=== PATIENT | female | born 1940 | race Caucasian/White ===

== ENCOUNTER 2017-10-17 07:03 | Day surgery (SDC) | payer MEDICARE ==
[~2017-10-17 07:03] MED LIST: Buffered Lidocaine 0.9% SYRIN* 5 ML/SYR SYRINGE INTRADERM ONE
[2017-10-17] MEDS ORDERED: Buffered Lidocaine 0.9% SYRIN* 5 ML/SYR SYRINGE ONE (07:19)
--- NOTE | 2017-10-17 10:05 | RAD ---
HISTORY: Left-sided radiculopathy COMPARISONS: None TECHNIQUE: The following sequences were obtained of the lumbar spine: Sagittal and axial T1- and T2-weighted images, coronal T2-weighted images, and sagittal STIR images. FINDINGS: SPINAL CORD, CONUS, AND CAUDA EQUINA: The visualized spinal cord, conus, and cauda equina are normal in caliber, position, and signal intensity. ALIGNMENT: There is trace anterolisthesis of L4 and L5. VERTEBRAL BODIES: The bones are normal in signal intensity. There is mild anterolateral marginal osteophyte formation. JOINTS: There is facet osteoarthritis most pronounced along the lower lumbar spine. MUSCULATURE: Unremarkable INTERVERTEBRAL DISCS: There is diffuse loss of intervertebral disc height and T2 signal throughout the spine. AXIAL IMAGES: L1-L2: There is a broad-based disc bulge at bilateral facet hypertrophy. There is moderate bilateral neural foraminal narrowing. There is mild narrowing of the central canal. L2-L3: There is bilateral facet hypertrophy. There is mild narrowing of central canal. There is no significant neural foraminal narrowing. L3-L4: There is broad-based disc bulge at bilateral facet hypertrophy. There is mild bilateral neural foraminal narrowing. There is moderate narrowing of the central canal. L4-L5: There is bilateral facet hypertrophy. There is mild bilateral neural foraminal narrowing. There is moderate narrowing of the central canal. L5-S1: There is bilateral facet hypertrophy. There is no significant neural foraminal narrowing or central canal stenosis. SOFT TISSUES: The visualized soft tissues of the abdomen are unremarkable. OTHER: None. IMPRESSION: 1. DEGENERATIVE DISC DISEASE AND OSTEOARTHRITIS. 2. THERE IS MODERATE NARROWING OF THE CENTRAL CANAL AT L3-L4 AND L4-L5 WITH MILD NARROWING AT L1-L2 AND L2-L3. 3. THERE IS MULTILEVEL NEURAL FORAMINAL NARROWING DESCRIBED ABOVE.
[2017-10-17 10:12] VITALS: BP 135/83
== END 2017-10-17 10:25 | disposition home or self-care (01) ==
LOC: OR 07:03 → EDSTATUS 09:00 → OR 10:25
PROVIDERS: ATTEND Anesthesiology Pain Medicine
DX: M54.16 Radiculopathy, lumbar region (principal); E11.9 Type 2 diabetes mellitus without complications; Z79.84 Long term (current) use of oral hypoglycemic drugs; M51.36 Other intervertebral disc degeneration, lumbar region; M47.896 Other spondylosis, lumbar region; M48.061 Spinal stenosis, lumbar region without neurogenic claudication; I10 Essential (primary) hypertension; M19.90 Unspecified osteoarthritis, unspecified site; E07.9 Disorder of thyroid, unspecified
CPT/HCPCS: 72148

== ENCOUNTER → 2018-09-10 08:17 | Day surgery (SDC) | payer MEDICARE ==
[~2018-09-10 08:17] MED LIST changes: +Acetaminophen IV 1GM/100ML * 1,000 MG/100 ML VIAL IVPB ONE; +Bacitracin INJECTION* 50,000 UNITS ONE; -Buffered Lidocaine 0.9% SYRIN* 5 ML/SYR SYRINGE INTRADERM ONE; +Buffered Lidocaine 1% SYRIN* 1 ML/SYRINGE INTRADERM ONE; +Cisatracurium* 2 MG/ML MDV 5 ML ONE; +Dexamethasone IV* 4 MG/ML 1 ML (4 MG) ONE; +Famotidine IV* 10 MG/ML 2 ML (20 mg) IV ONE; +Famotidine IV* 10 MG/ML 2 ML (20 mg) ONE; +Lactated Ringers 1000 ML Bag* 1,000 ML IV SCH; +Lidocaine 1% MPF wEPI 200,000* 30 ML SDV ONE; +Lidocaine 2% PF * 5 ML VIAL ONE; +Midazolam* 1 MG/ML 5 ML VIAL (5 MG) ONE; +Ondansetron INJ* 2 MG/ML VIAL ONE; +Phenylephrine 10 MG/ML VIAL* 1 ML VIAL ONE; +Propofol* 0 MG/0 ML BTL ONE; +Propofol* 10 MG/ML 20 ML BTL ONE; +Remifentanil* 2 MG VIAL ONE; +SODIUM CHLORIDE 0.9% ONE; +Thrombin 5,000 UNITS* 1 APPLIC KIT - topical use - TOPICAL ONE; +Vancomycin(*) 2,000 MG in NS 0.9% 500 ML* 500 ML IVPB ONE; +fentaNYL* 50 MCG/ML 2 ML VIAL (100 MCG VIAL) ONE
[2018-09-10 09:30] VITALS: BP 168/84
[2018-09-10 10:08] LABS: Urine Appearance Cloudy; Urine Bacteria Absent (Absent); Urine Bilirubin Negative (Negative); Urine Blood 1+ (Negative); Urine Color Yellow; Urine Glucose Negative (Negative); Urine Ketones Trace (Negative); Urine Nitrite Negative (Negative); Urine Protein Negative (Negative); Urine Red Blood Cell 1+(3-5/hpf) (Absent); Urine Specific Gravity 1.024 (1.010-1.030); Urine Squamous Epithelial Cell Present (Absent); Urine Urobilinogen Negative (Negative); Urine White Blood Cell 3+(>20/hpf) (Absent)
== END | disposition home or self-care (01) ==
LOC: OR 08:17
PROVIDERS: ATTEND Neurological Surgery
DX: M47.26 Other spondylosis with radiculopathy, lumbar region (principal); Z53.09 Procedure and treatment not carried out because of other contraindication; N39.0 Urinary tract infection, site not specified
CPT/HCPCS: 81003; 81015; 87086; A9270-GY; J1100; J2001; J2250; J2405; J2704; J3010; J3370

== ENCOUNTER 2018-09-28 06:19 | Inpatient (IN) | payer MEDICARE ==
[2018-09-28] MEDS ORDERED: Buffered Lidocaine 1% SYRIN* 1 ML/SYRINGE INTRADERM ONE (14:33)
[2018-09-29] MEDS ORDERED: Vancomycin(*) 2,000 MG in NS 0.9% 500 ML* 500 ML IVPB SCH ×2
--- OUTSIDE RECORDS SUMMARY | 2018-09-29 05:33 | XMS REPORT | Continuity of Care Document ---
:1940 External Reference #:[id number] Author Name Rosey Bentley Care Team Providers Name Role Phone Gary Juarez D.O. Primary Care Physician Unavailable Payers Date Identification Numbers Payment Provider Subscriber Policy Number: [id number] [employer] [place] PayID: [id number] [address] [place] [address] Advance Directives Description No Information Available Problems Description No Information Family History Date Family Member(s) Observation Comments General Heart Disease General Leukemia Social History Type Date Description Comments Sex Unknown Marital Status Lives With Tobacco Use Start: Unknown End: Unknown Patient is a former smoker Smoking Status Reviewed: 09/25/18 Patient is a former smoker Allergies, Adverse Reactions, Alerts Active Allergies Reaction Severity Comments Date Penicillin 09/10/2017 Medications Active Medications SIG Qnty Indications Ordering Date Provider Caltrate 600+D Plus take one Unknown Minerals capsule/tablet [id number] Chewtabs by mouth twice daily Atenolol 1 by mouth Unknown 50mg Tablets every day Hydrochlorothiazide 1/2 by mouth Unknown 25mg Tablets every day Simvastatin 1 by mouth Unknown 20mg Tablets every day Levothyroxine Sodium 1 by mouth Unknown 137mcg Tablets every day Metformin HCL 1 by mouth Unknown 500mg Tablets twice a day Ibuprofen as needed Unknown 200mg Tablets Vitamin D-3 1 by mouth Unknown 1000Unit Capsules every day Iron 1 by mouth Unknown 325(65Fe) mg Tablets every day Vitamin C Immune Health 2 by mouth Unknown 500mg every day Chewtabs Iron (Ferrous Gluconate) 1 by mouth a Unknown 256(28Fe) day mg Tablets History Medications Vitamin B-12 1 by mouth every day Unknown - 06/01/2018 1000mcg Tablets Metoprolol Succinate ER 1 by mouth every day Unknown - 2018 50mg Tablets ER 24HR Ibuprofen as needed Unknown - 05/26/2018 200mg Tablets Vitamin C Immune Health 1 qd Unknown - 06/01/2018 500mg Chewtabs Immunizations Description No Information Available Vital Signs Date Vital Result Comment 09/25/2018 10:25am Height 62 inches 5'2" Weight 277.00 lb Heart Rate 55 /min BP Systolic Sitting 110 mmHg right upper arm BP Diastolic Sitting 60 mmHg right upper arm Respiratory Rate 22 /min Body Temperature 97.7 F Pain Level 7 O2 % BldC Oximetry 97 % BMI (Body Mass Index) 50.7 kg/m2 08/07/2018 10:30am Height 62 inches 5'2" Weight 280.00 lb BP Systolic Sitting 140 mmHg BP Diastolic Sitting 88 mmHg Pain Level 6 BMI (Body Mass Index) 51.2 kg/m2 07/06/2018 4:17pm Height 62 inches 5'2" Weight 286.00 lb BP Systolic Sitting 136 mmHg BP Diastolic Sitting 86 mmHg Pain Level 6 BMI (Body Mass Index) 52.3 kg/m2 06/19/2018 11:12am Height 62 inches 5'2" Weight 286.00 lb Heart Rate 76 /min BP Systolic Recheck 132 mmHg BP Diastolic Recheck 84 mmHg Respiratory Rate 16 /min Body Temperature 97.7 F BMI (Body Mass Index) 52.3 kg/m2 05/04/2018 11:43am Height 62 inches 5'2" Weight 280.00 lb BP Systolic Sitting 126 mmHg BP Diastolic Sitting 80 mmHg Pain Level 10 BMI (Body Mass Index) 51.2 kg/m2 04/08/2018 12:01pm Height 62 inches 5'2" Weight 280.00 lb BP Systolic Sitting 130 mmHg BP Diastolic Sitting 70 mmHg Pain Level 7 BMI (Body Mass Index) 51.2 kg/m2 09/10/2017 8:59am Height 62 inches 5'2" Weight 280.00 lb Heart Rate 76 /min BP Systolic Recheck 134 mmHg BP Diastolic Recheck 82 mmHg Respiratory Rate 16 /min Body Temperature 97.8 F BMI (Body Mass Index) 51.2 kg/m2 Results Test Date Facility Test Result H/L Range Note Urinalysis Profile 09/10/2018 [facility] Urine Color Yellow [address] [place] [address] [phone] Urine Appearance Cloudy Urine Specific Bertha 1.024 N 1.010-1.030 Urine pH 7.0 N 5-9 Urine Urobilinogen Negative Negative Urine Ketones Trace Abnormal Negative Urine Protein Negative Negative Urine Leukocytes 3+ Abnormal Negative Urine Blood 1+ Abnormal Negative Urine Nitrite Negative Negative Urine Bilirubin Negative Negative Urine Glucose Negative Negative Urine White Blood Cell 3+(>20/hpf) Abnormal Absent Urine Red Blood Cell 1+(3-5/hpf) Abnormal Absent Urine Bacteria Absent Absent Urine Squamous Epithelial Cell Present Abnormal Absent Urine Culture And 09/10/2018 [facility] Urine SEE RESULT [address] [place] [address] [phone] Laboratory test 09/10/2018 [facility] Point of 110 mg/dL High 70-10 [address] Care Glucose 0 [place] [address] [phone] CBC No Diff 09/03/2018 [facility] White Blood 8.9 10^3/uL N 3.5-[address] Count 0[address]8 [place] [address] [phone] Red Blood Count 5.13 10^6/uL High 3.70-4.87 Hemoglobin 14.3 g/dL N 12.0-16.0 Hematocrit 43 % High 33-41 Mean Corpuscular Volume 84 fL N 80-97 Mean Corpuscular Hemoglobin 28 pg N 27-31 Mean Corpuscular HGB Conc 34 g/dL N 31-36 Red Cell Distribution Width 15 % N 10.5-15 Platelet Count 264 10^3/uL N 150-450 Mean Platelet Volume 7.6 fL N 7.4-10.4 Urinalysis Profile 09/03/2018 [facility] Urine Color Yellow [address] [place] [address] [phone] Urine Appearance Clear Urine Specific Bertha 1.013 N 1.010-1.030 Urine pH 6.0 N 5-9 Urine Urobilinogen Negative Negative Urine Ketones Negative Negative Urine Protein Negative Negative Urine Leukocytes 3+ Abnormal Negative Urine Blood 1+ Abnormal Negative Urine Nitrite Negative Negative Urine Bilirubin Negative Negative Urine Glucose Negative Negative Urine White Blood Cell 1+(6-10/hpf) Abnormal Absent Urine Red Blood Cell 1+(3-5/hpf) Abnormal Absent Urine Bacteria Absent Absent Urine Squamous Epithelial Cell Present Abnormal Absent Inr/Protime 09/03/2018 [facility] Inr 0.89 N 0.77-1.[address] [place] [address] [phone] Laboratory test 09/03/2018 [facility] Partial 31.8 seconds N 26.0-36.[address] [place] [address] PTT [phone] Type & Screen 09/03/2018 [facility] Patient O [place] [address] [phone] Antibody Screen NEGATIVE Basic Metabolic Panel 09/03/2018 [facility] Sodium 144 mmol/L N [address] [place] [address] [phone] Potassium 4.2 mmol/L N 3.5-5.0 Chloride 104 mmol/L N 101-111 Co2 Carbon Dioxide 27 mmol/L N 22-32 Anion Gap 13 mmol/L High 2-11 Calcium 9.7 mg/dL N 8.6-10.3 Glucose 104 mg/dL High 70-100 Blood Urea Nitrogen 16 mg/dL N 6-24 Creatinine 0.78 mg/dL N 0.51-0.95 BUN/Creatinine Ratio 20.5 High 8-20 Egfr Non- 71.4 >60 Egfr 86.4 >60 5 Urine Culture And 09/03/2018 [facility] Urine Culture SEE RESULT [address] [place] [address] [phone] Urine Culture And 08/13/2018 [facility] Urine Culture SEE RESULT 7, [address] [place] [address] [phone] Urinalysis Profile 08/13/2018 [facility] [place] [address] [phone] Urine Appearance Cloudy Urine Specific Bertha 1.016 N 1.010-1.030 Urine pH 6.0 N 5-9 Urine Urobilinogen Negative Negative Urine Ketones Negative Negative Urine Protein Negative Negative Urine Leukocytes 3+ Abnormal Negative Urine Blood 2+ Abnormal Negative Urine Nitrite Negative Negative Urine Bilirubin Negative Negative Urine Glucose Negative Negative Urine White Blood Cell 3+(>20/hpf) Abnormal Absent Urine Red Blood Cell 2+(6-10/hpf) Abnormal Absent Urine Bacteria 1+ Abnormal Absent Urine Squamous Epithelial Cell Present Abnormal Absent Urine Hyaline Casts Present Abnormal Absent Basic Metabolic Panel 08/13/2018 [facility] Sodium 141 mmol/L N 135-[address] [place] [address] [phone] Potassium 3.8 mmol/L N 3.5-5.0 Chloride 102 mmol/L N 101-111 Co2 Carbon Dioxide 31 mmol/L N 22-32 Anion Gap 8 mmol/L N 2-11 Glucose 100 mg/dL N 70-100 Blood Urea Nitrogen 16 mg/dL N 6-24 Creatinine 0.77 mg/dL N 0.51-0.95 BUN/Creatinine Ratio 20.8 High 8-20 Calcium 9.8 mg/dL N 8.6-10.3 Egfr Non- 72.5 >60 Egfr 87.7 >60 9 Type & Screen 08/13/2018 [facility] Patient Blood Type O Positive [facility] [place] [address] [phone] Antibody Screen NEGATIVE CBC No Diff 08/13/2018 [facility] White Blood 8.8 10^3/uL N 3.5-10.8 [address] [facility] [place] [address] [phone] Red Blood Count 5.11 10^6/uL High 3.70-4.87 Hemoglobin 13.9 g/dL N 12.0-16.0 Hematocrit 42 % High 33-41 Mean Corpuscular Volume 83 fL N 80-97 Mean Corpuscular Hemoglobin 27 pg N 27-31 Mean Corpuscular HGB Conc 33 g/dL N 31-36 Red Cell Distribution Width 14 % N 10.5-15 Platelet Count 250 10^3/uL N 150-450 Mean Platelet Volume 7.8 fL N 7.4-10.4 Laboratory test 08/13/2018 [facility] Partial 31.2 N 26.0- 36.3 [address] [place] [address] Time PTT [phone] Inr/Protime 08/13/2018 [facility] Inr 0.87 N 0.77-1.02 [address] [place] [address] [phone] Laboratory test 06/26/2018 [facility] Point of 121 mg/dL High 70-100 11 finding [address] [facility] [place] [address] Glucose [phone] 1 SEE RESULT BELOW Name: LITTLE RETANA : [address]: Alonso Ruvalcaba MD Acct: [id number] Unit: [id number] AGE: 78 Location: OR Re09/10/18 SEX: F Status: REG SDC SPEC: [id number] GO: 09/10/[address] [facility] [address]: Alonso Ruvalcaba MD REQ: [id number] RECD: 09/10/18 STATUS: DANN BOURGEOIS DR: Gary Juarez DO _ SOURCE: URINE SPDESC: ORDERED: Urine Culture Procedure Result Reported Site Urine Culture Final 09/11/18- 1013 ML No growth of clinically significant organisms * ML - Main Lab . END OF REPORT DEPARTMENT OF PATHOLOGY, [address] [place] [address] Nico Isidro M.D. Director [facility] # [id number] 2 [employer]: [id number] 09/10 4 09/10 5 Because ethnic data is not always readily available, this report includes an eGFR for both -Americans and non- Americans. The National Kidney Disease Education Program (NKDEP) does not endorse the use of the MDRD equation for patients that are not between the ages of 18 and 70, are , have extremes of body size, muscle mass, or nutritional status, or are non- or non-. According to the National Kidney Foundation, irrespective of diagnosis, the stage of the disease is based on the level of kidney function: Stage Description GFR(mL/min/1.73 m(2)) 1 Kidney damage with normal or decreased GFR 90 2 Kidney damage with mild decrease in GFR 60-89 3 Moderate decrease in GFR 30-59 4 Severe decrease in GFR 15-29 5 Kidney failure <15 (or dialysis) 6 SEE RESULT BELOW Name: LITTLE RETANA : [address]: Alonso Ruvalcaba MD Acct: [id number] Unit: [id number] AGE: 78 Location: [facility] Re09/03/18 SEX: F Status: REG REF SPEC: [id number] GO: 09/03/[address] [facility] [address]: Alonso Ruvalcaba MD REQ: [id number] RECD: 09/03/18 STATUS: DANN BOURGEOIS DR: Gary Juarez DO _ SOURCE: URINE SPDESC: ORDERED: Urine Culture Procedure Result Reported Site Urine Culture Final 09/04/18- 1335 ML No growth of clinically significant organisms * ML - Main Lab . END OF REPORT DEPARTMENT OF PATHOLOGY, [address] [place] [address] Nico Isidro M.D. Director [facility] # [id number] 7 08/20 8 SEE RESULT BELOW Name: LITTLE RETANA : [address]: Alonso Ruvalcaba MD Acct: [id number] Unit: [id number] AGE: 78 Location: PAT Re08/13/18 SEX: F Status: REG REF SPEC: [id number] GO: 08/13/18-[address] [facility] [address]: Alonso Ruvalcaba MD REQ: [id number] RECD: 08/13/18-1233 STATUS: DANN BOURGEOIS DR: Gary Juarez DO _ SOURCE: URINE SPDESC: ORDERED: Urine Culture Procedure Result Reported Site Urine Culture Final 08/14/18- 1214 ML No growth of clinically significant organisms * ML - Main Lab . END OF REPORT DEPARTMENT OF PATHOLOGY, [address] [place] [address] Nico Isidro M.D. Director [facility] # [id number] 9 Because ethnic data is not always readily available, this report includes an eGFR for both -Americans and non- Americans. The National Kidney Disease Education Program (NKDEP) does not endorse the use of the MDRD equation for patients that are not between the ages of 18 and 70, are , have extremes of body size, muscle mass, or nutritional status, or are non- or non-. According to the National Kidney Foundation, irrespective of diagnosis, the stage of the disease is based on the level of kidney function: Stage Description GFR(mL/min/1.73 m(2)) 1 Kidney damage with normal or decreased GFR 90 2 Kidney damage with mild decrease in GFR 60-89 3 Moderate decrease in GFR 30-59 4 Severe decrease in GFR 15-29 5 Kidney failure <15 (or dialysis) 10 AA 08/20 11 [employer]: [id number] Procedures Date Code Description Status 09/10/2017 96241 Control Nasal Hemorrhage Anterior Completed Encounters Type Date Location Provider Dx Diagnosis Office Visit 07/06/2018 [facility] M47.26 Other spondylosis 4:00p [facility] Ruvalcaba MD with radiculopathy, lumbar region M43.16 Spondylolisthesis, lumbar region M48.061 Spinal stenosis, lumbar region without neurogenic sophia Office Visit 06/19/2018 Neurosurgery Jessica M43.16 Spondylolisthesis, 11:00a [facility] Opal Walter PA-C lumbar region AT [place] M47.26 Other spondylosis with radiculopathy, lumbar region Office 05/04/2018 [facility] M47.26 Other spondylosis Visit 11:00a [facility] Ruvalcaba MD with radiculopathy, lumbar region M43.16 Spondylolisthesis, lumbar region Office 04/08/2018 [facility] M47.26 Other spondylosis Visit 11:30a [facility] Ruvalcaba MD with radiculopathy, lumbar region M43.16 Spondylolisthesis, lumbar region M48.061 Spinal stenosis, lumbar region without neurogenic sophia Office Visit 09/10/2017 9:15a [facility] Darrian Willett, R04.0 Epistaxis AT [facility] Plan of Treatment Future Appointment(s):12/28/2018 1:00 pm - Alonso Ruvalcaba MD at [facility]11/04/2018 11:30 am - Alonso Ruvalcaba MD at [facility]10/07/2018 9:00 am - Alonso Ruvalcaba MD at [facility]09/25/2018 - SCOT Ryan-[id number] Other spondylosis with radiculopathy, lumbar idzjovX83.16 Spondylolisthesis, lumbar voatfpZ32.061 Spinal stenosis, lumbar region without neurogenic claudFollow up: Surgery scheduled for 09/29. Follow up appointment already scheduled with Dr. Ruvalcaba.
--- OUTSIDE RECORDS SUMMARY | 2018-09-29 05:34 | XMS REPORT | Continuity of Care Document ---
:1940 External Reference #:[id number] Author Name Esthela Wheatley Care Team Providers Name Role Phone Gary Juarez D.O. Primary Care Physician Unavailable Payers Date Identification Numbers Payment Provider Subscriber Policy Number: [id number] [employer] [place] PayID: [id number] [address] [place] [address] Advance Directives Description No Information Available Problems Description No Information Family History Date Family Member(s) Observation Comments General Heart Disease General Leukemia Social History Type Date Description Comments Sex Unknown Marital Status Lives With Tobacco Use Start: Unknown End: Unknown Patient is a former smoker Smoking Status Reviewed: 08/07/18 Patient is a former smoker Allergies, Adverse Reactions, Alerts Date Description Reaction Status Severity Comments 09/10/2017 Penicillin Active Medications Medication Date Status Form Strength Qnty SIG Indications Ordering Provider Caltrate 600+D Plus / Active Chewtabs 600-800mg take Unknown Minerals 0000 -Unit one capsule /tablet by mouth twice daily Atenolol / Active Tablets 50mg 1 by Unknown 0000 mouth every day Hydrochlorothiazide 00/ Active Tablets 25mg 1/2 by Unknown 0000 mouth every day Simvastatin 00/ Active Tablets 20mg 1 by Unknown 0000 mouth every day Levothyroxine Sodium 00/ Active Tablets 137mcg 1 by Unknown 0000 mouth every day Metformin HCL / Active Tablets 500mg 1 by Unknown 0000 mouth twice a day Ibuprofen 00/00/ Active Tablets 200mg as Unknown 0000 needed Vitamin D-3 00// Active Capsules 1000Unit 1 by Unknown 0000 mouth every day Iron 00/00/ Active Tablets 325(65Fe) 1 by Unknown 0000 mg mouth every day Vitamin C Immune 00/ Active Chewtabs 500mg 2 by Unknown Health 0000 mouth every day Iron (Ferrous / Active Tablets 256(28Fe) 1 by Unknown Gluconate) 0000 mg mouth a day Vitamin B-12 / Hx Tablets 1000mcg 1 by Unknown 0000 - mouth 2018 day Metoprolol Succinate / Hx Tablets 50mg 1 by Unknown ER 0000 - ER 24HR mouth 2018 day Ibuprofen / Hx Tablets 200mg as Unknown 0000 - needed 2018 Vitamin C Immune / Hx Chewtabs 500mg 1 qd Unknown Health 0000 - 2018 Immunizations Description No Information Available Vital Signs Date Vital Result Comment 08/07/2018 10:30am Height 62 inches 5'2" Weight [...] Date Facility Test Result H/L Range Note CBC No Diff 09/03/2018 [facility] White Blood 8.9 10^3/uL N 3.5-10.[address] [place] [address] [phone] Red Blood Count 5.13 10^6/uL High 3.70-4.87 Hemoglobin 14.3 g/dL N 12.0-16.0 Hematocrit 43 % High 33-41 Mean Corpuscular Volume 84 fL N 80-97 Mean Corpuscular Hemoglobin 28 pg N 27-31 Mean Corpuscular HGB Conc 34 g/dL N 31-36 Red Cell Distribution Width 15 % N 10.5-15 Platelet Count 264 10^3/uL N 150-450 Mean Platelet Volume 7.6 fL N 7.4-10.4 Urinalysis Profile 09/03/2018 [facility] Urine Color Yellow [address] [place] [address] [phone] Urine Appearance Clear Urine Specific [place] 1.013 N 1.010-1.030 Urine pH 6.0 N [...] Epithelial Cell Present Abnormal Absent Inr/Protime 09/03/2018 [facility] Inr [address] [place] [address] [phone] Laboratory test 09/03/2018 [facility] Partial 31.8 seconds N 26.0-36.3 2 finding [facility] [place] [address] PTT [phone] Type & Screen 09/03/2018 [facility] Patient O Positive [address] [place] [address] [phone] Antibody Screen NEGATIVE Basic Metabolic Panel 09/03/2018 [facility] Sodium 144 mmol/L N 135-145 [facility] [place] [address] [phone] Potassium 4.2 mmol/L N 3.5-5.0 Chloride 104 mmol/L N 101-111 Co2 Carbon Dioxide 27 mmol/L N 22-32 Anion Gap 13 mmol/L High 2-11 Calcium 9.7 mg/dL N 8.6-10.3 Glucose 104 mg/dL High 70-100 Blood Urea Nitrogen 16 mg/dL N 6-24 Creatinine 0.78 mg/dL N 0.51-0.95 BUN/Creatinine Ratio 20.5 High 8-20 Egfr Non- 71.4 >60 Egfr 86.4 >60 3 Urine Culture And 09/03/2018 [facility] Urine Culture SEE RESULT [address] [place] [address] [phone] Urine Culture And 08/13/2018 [facility] Urine Culture SEE RESULT 5, [address] [place] [address] [phone] Urinalysis Profile 08/13/2018 [facility] Urine Color Yellow [address] [place] [address] [phone] Urine Appearance Cloudy Urine Specific [place] 1.016 N 1.010-1.030 Urine pH 6.0 N [...] Present Abnormal Absent Basic Metabolic Panel 08/13/2018 [facility] Sodium 141 mmol/L N 135-[address] [place] [address] [phone] Potassium 3.8 mmol/L N 3.5-5.0 Chloride 102 mmol/L N 101-111 Co2 Carbon Dioxide 31 mmol/L N 22-32 Anion Gap 8 mmol/L N 2-11 Glucose 100 mg/dL N 70-100 Blood Urea Nitrogen 16 mg/dL N 6-24 Creatinine 0.77 mg/dL N 0.51-0.95 BUN/Creatinine Ratio 20.8 High 8-20 Calcium 9.8 mg/dL N 8.6-10.3 Egfr Non- 72.5 >60 Egfr 87.7 >60 7 Type & Screen 08/13/2018 [facility] Patient Blood Type O Positive [address] [place] [address] [phone] Antibody Screen NEGATIVE CBC No Diff 08/13/2018 [facility] White Blood 8.8 10^3/uL N 3.5-10.[address] [place] [address] [phone] Red Blood Count 5.11 10^6/uL High 3.70-4.87 Hemoglobin 13.9 g/dL N 12.0-16.0 Hematocrit 42 % High 33-41 Mean Corpuscular Volume 83 fL N 80-97 Mean Corpuscular Hemoglobin 27 pg N 27-31 Mean Corpuscular HGB Conc 33 g/dL N 31-36 Red Cell Distribution Width 14 % N 10.5-15 Platelet Count 250 10^3/uL N 150-450 Mean Platelet Volume 7.8 fL N 7.4-10.4 Laboratory test 08/13/2018 [facility] Partial 31.2 N 26.0- 36.3 8 [address] [address] PTT [phone] Inr/Protime 08/13/2018 [facility] Inr 0.87 N 0.77-1.[address] [place] [address] [phone] Laboratory test 06/26/2018 [facility] Point of 121 mg/dL High 70-100 [address] [place] [place] [address] [phone] 1 AA 09/10 2 AA 09/10 3 Because ethnic data is not always readily [...] 15-29 5 Kidney failure <15 (or dialysis) 4 SEE RESULT BELOW Name: LITTLE RETANA : [address]: Alonso Ruvalcaba MD Acct: [id number] Unit: [id number] AGE: 78 Location: [facility] Re09/03/18 SEX: F Status: REG REF SPEC: [id number] GO: 09/03/[address] [facility] [address]: Alonso Ruvalcaba MD REQ: [id number] RECD: 09/03/18 STATUS: DANN BOURGEOIS DR: Gary Juarez DO _ SOURCE: URINE SPDESC: ORDERED: Urine Culture Procedure Result Reported Site Urine Culture Final 09/04/18- 1335 ML No growth of clinically significant organisms * ML - Main Lab . END OF REPORT DEPARTMENT OF PATHOLOGY, [address] [place] [address] Nico Isidro M.D. Director [facility] # [id number] 08/20 6 SEE RESULT BELOW Name: LITTLE RETANA : [address]: Alonso Ruvalcaba MD Acct: [id number] Unit: [id number] AGE: 78 Location: PAT Re08/13/18 SEX: F Status: REG REF SPEC: [id number] GO: 08/13/18-[address] [facility] [address]: Alonso Ruvalcaba MD REQ: [id number] RECD: 08/13/181233 STATUS: DANN BOURGEOIS DR: Gary Juarez DO _ SOURCE: URINE SPDESC: ORDERED: Urine Culture Procedure Result Reported Site Urine Culture Final 08/14/18- 1214 ML No growth of clinically significant organisms * ML - Main Lab . END OF REPORT DEPARTMENT OF PATHOLOGY, [address] [place] [address] Nico Isidro M.D. Director [facility] # [id number] 7 Because ethnic data is not always readily [...] 15-29 5 Kidney failure <15 (or dialysis) 8 AA 08/20 9 Equipment Sterilizer: [id number] Procedures Date Code Description Status 09/10/2017 24064 Control Nasal Hemorrhage Anterior Completed Encounters Type Date Location Provider Dx Diagnosis Office Visit 07/06/2018 Neurosurgery Vassilios M47.26 Other spondylosis 4:00p [facility] Ruvalcaba MD with radiculopathy, lumbar region M43.16 Spondylolisthesis, lumbar region M48.061 Spinal stenosis, lumbar region without neurogenic sophia Office Visit 06/19/2018 Neurosurgery Jessica M43.16 Spondylolisthesis, 11:00a [facility] Walter PA-C lumbar region AT [place] M47.26 Other spondylosis with radiculopathy, lumbar region [...] Office Visit 09/10/2017 9:15a [facility] Darrian Willett, R04.0 Epistaxis AT [place] Plan of Treatment Future Appointment(s):09/21/2018 1:15 pm - Jessica Walter PA-C at [facility]09/10/2018 7:30 am - Jessica Walter PA-C at [facility]09/10/2018 7:30 am - Alonso Ruvalcaba MD at [facility]08/07/2018 - Alonso Ruvalcaba, MDM47.26 Other spondylosis with radiculopathy, lumbar regionFollow up:RV one week, one month, three months postop.M43.16 Spondylolisthesis, lumbar nzuieuA43.061 Spinal stenosis, lumbar region without neurogenic sophia
[2018-09-29] MEDS ORDERED: Dexamethasone IV* 4 MG/ML 1 ML (4 MG) IV SLOW PU ONE (06:00)
[2018-09-29] MEDS ORDERED: Famotidine IV* 10 MG/ML 2 ML (20 mg) IV ONE (06:00)
[2018-09-29] MEDS ORDERED: Lactated Ringers 1000 ML Bag* 1,000 ML IV SCH ×2 (06:00→17:00)
[2018-09-29] MEDS ORDERED: Famotidine IV* 10 MG/ML 2 ML (20 mg) ONE (06:10)
[2018-09-29] MEDS ORDERED: Buffered Lidocaine 1% SYRIN* 1 ML/SYRINGE INTRADERM ONE (06:10)
[2018-09-29] MEDS ORDERED: Dexamethasone IV* 4 MG/ML 1 ML (4 MG) ONE (06:10)
[2018-09-29] MEDS ORDERED: Thrombin 5,000 UNITS* 1 APPLIC KIT - topical use - TOPICAL ONE ×2 (06:29→11:48)
[2018-09-29] MEDS ORDERED: Bacitracin INJECTION* 50,000 UNITS ONE ×2 (06:29→11:49)
[2018-09-29] MEDS ORDERED: Lidocaine 1% MPF wEPI 200,000* 30 ML SDV ONE ×2 (06:29→11:48)
[2018-09-29] MEDS ORDERED: Succinylcholine* 20 MG/ML 10 ML VIAL ONE (11:54)
[2018-09-29] MEDS ORDERED: Propofol* 10 MG/ML 20 ML BTL ONE (11:54)
[2018-09-29] MEDS ORDERED: fentaNYL* 50 MCG/ML 5 ML VIAL (250 MCG VIAL) ONE (11:54)
[2018-09-29] MEDS ORDERED: Midazolam* 1 MG/ML 2 ML VIAL (2 MG) ONE (11:54)
[2018-09-29] MEDS ORDERED: Lidocaine 2% PF * 5 ML VIAL ONE (11:55)
[2018-09-29] MEDS ORDERED: HYDROcodone/ACETAMIN 5-325 MG* 1 TAB PO PRN ×2 (12:11→16:56)
[2018-09-29] MEDS ORDERED: Naloxone* 0.4 MG/ML 1 ML VIAL IV PRN (12:11)
[2018-09-29] MEDS ORDERED: DiMENhydriNATE IV* 50 MG/ML VIAL IV PUSH PRN (12:11)
[2018-09-29] MEDS ORDERED: Scopolamine 1.5 mg* PATCH TRANSDERM PRN (12:11)
[2018-09-29] MEDS ORDERED: EPHEDrine (Pressors)* 50 MG/ML VIAL ONE (12:36)
[2018-09-29] MEDS ORDERED: fentaNYL* 50 MCG/ML 2 ML VIAL (100 MCG VIAL) ONE ×4 (15:23→18:56)
[2018-09-29] MEDS ORDERED: Ondansetron INJ* 2 MG/ML VIAL ONE (16:10)
[2018-09-29] MEDS ORDERED: Ondansetron INJ* 2 MG/ML VIAL IV PRN (16:56)
[2018-09-29] MEDS ORDERED: Magnesium Hydroxide LIQ* 30 ML UDC PO PRN (16:56)
[2018-09-29] MEDS ORDERED: Cyclobenzaprine TAB* 10 MG PO PRN (17:32)
[2018-09-29] MEDS ORDERED: oxyCODONE/Acetamin 5/325 MG* TAB ONE (18:27)
[2018-09-29] MEDS: oxyCODONE/Acetamin 5/325 MG* TAB PO PRN ×2 (18:28→18:30)
[2018-09-29] MEDS: fentaNYL* 50 MCG/ML 2 ML VIAL (100 MCG VIAL) IV PRN ×4 (18:28→20:08)
--- NOTE | 2018-09-29 20:13 | CONS ---
[facility] MEDICINE CONSULTATION REPORT: DATE OF CONSULT: 09/29/18 PROVIDER: Brook De La Paz NP ATTENDING PHYSICIAN: Dr. Ruvalcaba. CONSULTING PHYSICIAN: Dr. Ana Cabrera (dictated by Brook De La Paz NP) REASON FOR CONSULT: Co-management of chronic medical conditions. HISTORY OF PRESENT ILLNESS: Ms. Centeno is a 78-year-old female with a past medical history significant for diabetes, hypertension, hypothyroid, hyperlipidemia, and lumbar spondylosis, who presented to [facility] for an elective left L4-L5 TLIF. Please see dictated H and P from Jessica Walter, for complete details. In brief, the patient had ongoing lower back pain, failed conservative measures; so elected for an elective left L4-L5 TLIF with Dr. Ruvalcaba. Due to the patient's past medical conditions, we were asked to consult and comanage her care during her hospitalization. PAST MEDICAL HISTORY: 1. Diabetes. 2. Hypertension. 3. Hypothyroid. 4. Hyperlipidemia. 5. Lumbar spondylosis. PAST SURGICAL HISTORY: 1. Back surgery. 2. Cataract. 3. Right shoulder repair. 4. Hysterectomy. 5. Left hip arthroplasty. 6. Right knee arthroplasty. HOME MEDICATIONS: 1. Caltrate plus D 600/800 mg 1 tablet twice daily. 2. Atenolol 50 mg po in the AM and 25 mg po in the evening . 3. Hydrochlorothiazide 25 mg half tablet every day. 4. Simvastatin 20 mg every day. 5. Levothyroxine 125 mcg p.o. daily. 6. Metformin 500 mg twice daily. 7. Ibuprofen 200 mg as needed. 8. Vitamin D3, 1000 units 1 tab p.o. daily. 9. Iron 325 one tab every day. 10. Vitamin C 500 mg 2 every day. 11. Ferrous gluconate 256 one tablet by mouth daily. ALLERGIES: PENICILLIN. FAMILY HISTORY: Mother with a history of an HI. No reported history of diabetes. Sister with leukemia. SOCIAL HISTORY: The patient reports that she quit smoking a long time ago. Denies any alcohol or illicit drug use. She is . Surrogate decision maker in the event she is unable to make her own decisions is her . She is a full code. REVIEW OF SYSTEMS: The patient denies any recent illnesses. Denies any fever, chills, chest pain, edema. Denies any cough, hemoptysis, or shortness of breath. No nausea, vomiting, diarrhea, abdominal pain, gross hematuria, dysuria , any focal weakness or sensory loss. Denies any acute changes in her vision, dysphagia, arthralgias, myalgias, rashes, lesions, or open sores. PHYSICAL EXAM: General: At this time, Ms. Centeno is a 78-year-old female. She is resting on the stretcher in PACU. She just complained of mild pain to her lower back. She does not appear to be in any acute distress. HEENT: Head is atraumatic, normocephalic. Eyes: EOMs are intact. Sclerae anicteric and not pale. Oral mucosa appeared to be moist. Neck is supple. Lungs are clear to auscultation bilaterally. No wheezes, rales, or rhonchi. Cardiac: S1, S2. Regular rate and rhythm. No murmurs, rubs, or gallops. Abdomen is obese, soft and nontender. Bowel sounds are present x4. Extremities: She is able to move all 4 extremities. Pedal pulses are +2 bilaterally. Sensation is intact to her lower extremities. Neurologic: She is awake, alert, and oriented x3. Speech is clear. Thought process is intact. There are no gross focal deficits. Skin: Intact. She does have a surgical incision to her lumbar spine. Psych : She is pleasant and cooperative. Vital Signs: 167/89, heart rate 74, respirations are 17, O2 saturation 97%, temperature was 97.0. DIAGNOSTIC STUDIES/LAB DATA: CBC from 09/03/18: WBCs were 8.9, RBCs 5.13, hemoglobin 14.3, hematocrit was 43, platelet count was 264. INR was 0.89, APTT was 31.8. Sodium 144, potassium 4.2, chloride 104, carbon dioxide 27, anion gap was 13, BUN was 16, creatinine 0.78, calcium was 9.7. Urine from 09/17/18, yellow cloudy, pH of 7.0, specific gravity was 1.012. Urine protein was negative, ketones were negative, blood was 1+. Nitrates, bilirubin, urobilinogen were all negative. Urine leukocyte esterase was 2+, wbc 's were 1+, rbc's were trace. Squamous epithelial cells were present. Bacteria was present. Urine glucose was negative. IMPRESSION AND PLAN: Ms. Centeno is a 78-year-old female with past medical history significant for diabetes, hypertension, hypothyroid, hyperlipidemia, and lumbar spondylosis, who presented for an elective L4-L5 transforaminal lumbar interbody fusion of the left L4-5. In the immediate postoperative period , the patient has no complaints. We were asked to consult co-manage her chronic medical conditions. Our recommendations are as follows: 1. Status post L4-L5 transforaminal lumbar interbody fusion. Management per Neurosurgery. PT/OT per Neurosurgery. Pain management per Neurosurgery. Bowel regimen per Neurosurgery. 2. Hypertension. We will continue on atenolol 50 mg in the AM and 25mg in the PM . HCTZ 12.5 mg po daily . 3. Hyperlipidemia. We will continue on simvastatin 20 mg p.o. daily. 4. Hypothyroid. We will continue on levothyroxine 125 mcg p.o. daily. 5. Diabetes. I will hold metformin and place her on lispro sliding scale with Accu-Cheks with a.c. 6. DVT prophylaxis: Per Orthopedics. 7. Diet: She can have a heart healthy, caffeine okay diet. 8. Code status: She is a full code. TIME SPENT: Time spent on this admission was approximately 45 minutes; greater than half that time was spent at the bedside reviewing events leading thus far to her hospitalization, performing my physical exam, and reviewing my plan of care. I have discussed with my attending, Dr. Ana Cabrera; she is in agreement with my plan. BROOK DE LA PAZ, GENE [id number]/[facility] #: [id number] LUCERO
[2018-09-29] MEDS ORDERED: Atenolol TAB* 25 MG PO SCH (21:30)
[2018-09-29] MEDS: Insulin LISPRO* 1 UNITS UNIT SUBCUT SCH (21:38)
--- NOTE | 2018-09-29 22:49 | PN ---
Hospitalist Progress Note Date of Service: 09/29/18 Follow up for confusion post-op. Patient is calm resting in her room on SSU. She is alert and oriented x4. She c/o mild lower back pain. Patient reports that she had a lot of anxiety in the PACU about a blonde female that she had a "sick sense" about. She reports that that has now resolved. She reports no further episode of confusion or feeling anxious.
[2018-09-30] MEDS: Acetaminophen TAB* 325 MG PO PRN ×3 (00:33→09:28)
--- NOTE | 2018-09-30 03:41 | OP ---
DATE OF OPERATION: 09/29/18 - ROOM #339 DATE OF : 40 SURGEON: Alonso Ruvalcaba MD. RESPIRATORY THERAPIST ASSISTANT: SCOT Ryan. ANESTHESIA: General. PRE-OP DIAGNOSIS: L4-5 degenerative disk disease with stenosis and grade 1 spondylolisthesis. POST-OP DIAGNOSIS: L4-5 degenerative disk disease with stenosis and grade 1 spondylolisthesis. OPERATIVE PROCEDURE: The patient underwent left L4-5 minimally invasive TLIF with PEEK interbody cage with iliac crest bone graft through a separate incision with DBX and pedicle screws L4 and L5 with intraoperative navigation and intraoperative electrophysiological monitoring. ESTIMATED BLOOD LOSS: 50 cc. COMPLICATIONS: None. INDICATIONS: The patient is a very pleasant 78-year-old female with complaints of back pain, radiating to the left lower extremity with MRI findings consistent with degenerative disk disease at L4-5 with grade 1 spondylolisthesis with significant stenosis. The patient failed conservative treatment modalities, and she was offered the option of surgical intervention. After explaining the expectations, limitations, and possible complications of the procedure with the complications including but not limited to bleeding, infection, risk of injury to adjacent structures, coma, paralysis, , need for additional procedures, anesthesia risk, stroke, blindness, cancer, instability, hardware failure, adjacent level disease, pseudoarthrosis, spinal fluid leak, loss of bladder or bowel control, pathologic hematoma, anesthesia risk, need for prolonged ICU stay, inability to improve to the patient and her family including the patient's daughter, the patient was agreeable to proceed with surgery and informed consent was obtained. The patient and her daughter understood that her condition may not improve and in fact may get worse after surgery and that she may need to have additional procedures in the future. They also understood that operative plan may be modified according to the intraoperative findings and conditions and that she may need to have additional procedure in the future. The patient and the family understood that she may require prolonged hospitalization, prolonged ICU stay, need for gastrostomy or tracheostomy, and prolonged rehabilitation. The patient also understood that because of her comorbidities and her body habitus, she is at increased risk for need for further additional procedures and she is comitted to appropriate healthy lifestyle and lose weight after the operation. DESCRIPTION OF PROCEDURE: The patient was brought to the operating room and placed under general anesthesia by the anesthesia team. She was carefully positioned prone on the Deny table. Her bony prominences were meticulously padded. After appropriate surgical pause and patient identification, the patient's skin was prepped and draped. A small incision over the right iliac crest was performed with a #10 surgical blade after infiltrating the skin with local anesthetic. The Corex needle was inserted into the right iliac crest, and with the assistance of Jamshidi needle and wire, right iliac crest autologous bone graft was harvested for use for the arthrodesis part the procedure. Through the same incision, the navigation star pin was secured and intraoperative O-arm imaging was obtained and the patient's data was transferred to the navigation platform. With the use of stereotactic navigation , the trajectories of pedicle screws of L4 and L5 were marked on the skin as well as the open wound for insertion of METRx retractor. The skin was infiltrated with local anesthetic. A #10 surgical blade was used to incise the skin in paramedian incision over the L4-5 disk space. The pedicles of L4 and L5 bilaterally were cannulated with the use of a high-speed drill and awl tip tap, and pedicle screws from [employer] 6.5 x 45 mm were inserted in all pedicles. Then attention was brought to insert the METRx tubular retractor system over the left L4-5 facet and the left L4 hemilamina with the assistance of stereotactic navigation. A 9 cm x 26 mm tubular retractor was inserted, and of note, due to the patient's body habitus, the longest tube was marginally able to fit. The operative microscope was brought into the filed and the left L4-5 facet as well as the left L4 hemilamina was gently exposed with Bovie cautery and periosteal elevator. Significant was observed as expected from preoperative and intraoperative imaging. High-speed drill was used to perform a medial facetectomy, partial hemilaminectomy, as well as resection of a portion of the pars. This was completed with the use of Kerrison punches. The ligamentum flavum was then gently elevated and resected with the use of Kerrison punches. Of note, significant hypertrophy of the ligamentum flavum was identified and also a significantly hypertrophied and calcified ligamentum flavum was encountered over the left L5 nerve root indenting the axilla of the nerve root significantly. After meticulous and careful neurolysis, the medial part of the thecal sac as well as the left L5 nerve root was gently explored and was found to be free of any pressure phenomenon. The nerve root as well as the thecal sac was then gently retracted medially with nerve root retractor, and after achieving meticulous hemostasis with bipolar cautery, an operative ___ ___ was used to incise the annulus fibrosus at the left L4-5 disk space. The disk space was then carefully prepared with use of serial dilators, pituitary rongeurs, Kerrison punches, and curettes, and after appropriate sizing and preparation of the end-plate, autologous bone graft mixed with DBX was placed into the disk space and a 10-14 mm x 28 mm expandable ELEVATE cage from [employer] was passed with a mixture of autologous local bone graft and DBX and inserted very carefully into the disk space. The ELEVATE cage was then gently expanded, and after removal of the nerve root retractor, the wound was copiously irrigated and meticulous hemostasis was confirmed. The tubular retractor was then gently removed and 0 intraoperative Vicryl suture was used to approximate the distal fascia opening. Then operating microscope was removed from the field, and after measuring the appropriate length, two 40-mm cobalt chrome rods were inserted through the same wound. The rods were then secured with screw head caps and a second intra-operative O-arm imaging was then performed and this confirmed excellent placement of all hardware with good reduction of the spondylolisthesis and excellent correction of the disk space. The screw head caps were then adequately locked, and all extension towers were removed as well as the navigation star pin. After copious irrigation and confirmation of meticulous hemostasis, all wounds were closed in layers with 0 interrupted Vicryl sutures to approximate the dorsal fascial defect and 2-0 inverted interrupted Vicryl sutures to approximate the subcutaneous tissue. The skin was covered with Dermabond. At the end of the procedure, all counts were reported to be correct. The patient remained hemodynamically stable throughout the case. Intraoperative electrophysiological monitoring remained stable throughout the case. The patient was then turned supine, was extubated, and was transferred to the recovery are in excellent condition. The case was done with the assistance of claudia ELLISON because of the complexity of the case. [id number]/[facility] #: [id number] LUCERO
[2018-09-30] MEDS ORDERED: Levothyroxine TAB* 125 MCG TAB PO SCH (06:00)
--- NOTE | 2018-09-30 08:03 | PN ---
Progress Note - Progress Note Date of Service: 09/30/18 SOAP: Subjective: 78 y/o female s/p Left TLIF at L4/L5 POD # 1 reports left LE radicular pain has resolved post OP. She has able to ambulate with walker no with any issues. Her vitals have been stable overnight, and she has no complaints. Currently still has hernández intact. Objective: Vital Signs - 8 hr 09/30/18 09/30/18 00:29 02:32 Temperature 98.3 F 98.2 F Pulse Rate 75 82 Respiratory 17 16 Rate Blood Pressure 116/53 110/53 (mmHg) O2 Sat by Pulse 92 95 Oximetry General: patient layng in bed comfortable NAD Neuro: GCS 15, CN II - XII grossly intact, senation intact through out with light touch, UPE motor strength 5/5 bilat, LE motor strength intact 5/5 bilat. Derm: surgical site clean bandage, no active bleeding noted Assessment: 78 y/o female s/p left TLIF at L4/L5 stable, radicular pain resolved ready for discharge. Plan: 1) D/C hernández 2) D/C IV if patient is tolerating orals 3) pain control as needed 4) Get Xray AP/Lateral 5)Discharge home.
[2018-09-30] MEDS: Insulin LISPRO* 1 UNITS UNIT SUBCUT SCH ×2 (08:23→12:21)
[2018-09-30] MEDS ORDERED: Atorvastatin* 10 MG TAB PO SCH (09:00)
[2018-09-30] MEDS ORDERED: Atenolol TAB* 50 MG PO SCH (09:00)
[2018-09-30] MEDS ORDERED: Hydrochlorothiazide TAB* 25 MG PO SCH (09:00)
[2018-09-30 10:49] VITALS: BP 108/49
--- NOTE | 2018-10-01 15:09 | DS ---
Date of surgery 09/29/2018 Date of Discharge 09/30/2018 Admitting Diagnosis:Lumbar spondylosis with Radicular pain Discharge Diagnosis: Lumbar spondylosis with Radicular pain Procedure: Left TLIF at L4/L5 Dispostion: Home Hosptial course: 78 y/o female with complaint of axial low back pain with with left leg radicular component, Patient had unsuccessfully attempted conservative therapy. On imaging there was left lateral recess stenosis, which corresponded with patient complaint. She was seen in the neurosurgery outpatient clinic, was offered surgical intervention. After discussing the procedure along with risk and benefits patient was consented for surgery. She admitted on 09/29/2018 for left TLIF at L4/L5, which she tolerated well. Following surgery patient was taken to PACU then short stay surgery unit for observation. Her pain was well controlled, she able to tolerate oral fluids and food without any issues. Patient reported that her radicular pain was resolved after surgery and was ambulating with walker. Her vitals were stable over observation period, so patient was discharged home with post op instructions, medications fpr pain control and clinic follow up date in 1 week.
[2018-10-02] MEDS ORDERED: Scopolamine PATCH Remove* 1 NOTE MISC PATCH OFF ONE (12:12)
== END 2018-09-30 13:22 | disposition home health service (06) | DRG 460 ==
LOC: AA 09-29 05:29 → SSU 09-29 20:19
PROVIDERS: ADMIT Neurological Surgery; ATTEND Neurological Surgery
PROC: 0QB20ZZ Excision of Right Pelvic Bone, Open Approach (ICD-10-PCS; 2018-09-29)
PROC: 0SG00AJ Fusion of Lumbar Vertebral Joint with Interbody Fusion Device, Posterior Approach, Anterior Column, Open Approach (ICD-10-PCS; principal; 2018-09-29 07:30)
DX: M47.26 Other spondylosis with radiculopathy, lumbar region (principal); Z68.43 Body mass index [BMI] 50.0-59.9, adult; E11.9 Type 2 diabetes mellitus without complications; I10 Essential (primary) hypertension; E03.9 Hypothyroidism, unspecified; E66.9 Obesity, unspecified; M43.16 Spondylolisthesis, lumbar region; E78.5 Hyperlipidemia, unspecified; M48.061 Spinal stenosis, lumbar region without neurogenic claudication; Z96.642 Presence of left artificial hip joint; Z96.651 Presence of right artificial knee joint; Z79.1 Long term (current) use of non-steroidal anti-inflammatories (NSAID); Z79.84 Long term (current) use of oral hypoglycemic drugs; Z79.899 Other long term (current) drug therapy; Z88.0 Allergy status to penicillin; Z87.891 Personal history of nicotine dependence; Z82.49 Family history of ischemic heart disease and other diseases of the circulatory system; Z80.6 Family history of leukemia
CPT/HCPCS: 72100; 76000; A9270-GY; G8978-GP-CI; G8979-GP-CI; G8980-GP-CI; J0330; J1100; J2001; J2250; J2405; J2704; J3010; J3370